=== PATIENT | male | born 1970 | race Asian ===

== ENCOUNTER 2020-08-16 09:47 | Emergency (ER) | payer OTHER ==
[~2020-08-16] VITALS: Ht 172.7 cm; Wt 76.7 kg
== END 2020-08-16 11:48 | disposition home or self-care (01) ==
LOC: ER 09:47
DX: S46.912A Strain of unspecified muscle, fascia and tendon at shoulder and upper arm level, left arm, initial encounter (principal); V86.59XA Driver of other special all-terrain or other off-road motor vehicle injured in nontraffic accident, initial encounter
CPT/HCPCS: 73030; 99283-25